=== PATIENT | female | born 1980 | race Two or more races ===

== ENCOUNTER 2023-10-15 22:38 | Emergency (ER) | payer OTHER ==
[~2023-10-15] VITALS: Ht 152.4 cm; Wt 95.3 kg
[2023-10-15] MEDS ORDERED: SYNTHROID125 MCG PO (22:51)
[2023-10-16 02:06] LABS: HEMATOCRIT 38.5 % (36.0-45.00); HEMOGLOBIN 12.9 g/dL (12.0-15.00); MEAN CELL VOLUME 82.1 fL (80.00-100.00); MEAN CORPUSCULAR HEMOGLOBIN 27.5 pg (27.00-32.0); MEAN CORPUSCULAR HGB CONC 33.5 g/dl (32.0-36.0); PLATELET COUNT 330 K/uL (150-450); RED BLOOD COUNT 4.69 M/uL (4.00-6.00); RED CELL DISTRIBUTION WIDTH 15.2 % (11.5-14.5)
[2023-10-16 02:31] LABS: CREATININE SERUM 0.75 mg/dL (0.55-1.02); GFR 85.58; POTASSIUM 3.88 mEq/L (3.5-5.1)
[2023-10-16 03:00] LABS: PH,URINE 6.5 (5.0-8.0); URINE APPEARANCE Clear; URINE BILIRRUBIN Negative (NEGATIVE); URINE BLOOD Large; URINE COLOR Yellow; URINE GLUCOSE Negative (NEGATIVE); URINE LEUKOCYTE Negative; URINE NITRATE Negative; URINE PROTEIN 30 (NEGATIVE)
[2023-10-16 03:08] LABS: URINE BACTERIA 226.7 uL (0.0-1933); URINE EPITHELIAL CELLS 11.7 uL (0.0-38.8); URINE WBC 8.3 uL (0.0-23.2)
[2023-10-16] MEDS ORDERED: ONDANSETRON ODT4 MG PO (06:26)
[2023-10-16] MEDS ORDERED: INTESTINEX680 M1 PO (06:26)
[2023-10-16] MEDS ORDERED: LEVSIN/SL0.125 MG SL (06:26)
[2023-10-16] MEDS ORDERED: PEPCID40 MG PO (06:26)
== END 2023-10-16 07:14 | disposition home or self-care (01) ==
LOC: ER 22:39
PROVIDERS: General Practice
DX: K52.89 Other specified noninfective gastroenteritis and colitis (principal)

== ENCOUNTER 2024-07-29 09:00 | Outpatient (CLI) | payer OTHER ==
[~2024-07-29 09:00] MED LIST: INTESTINEX680 M1 PO; LEVSIN/SL0.125 MG SL; ONDANSETRON ODT4 MG PO; PEPCID40 MG PO; SYNTHROID125 MCG PO
== END 2024-07-29 09:03 | disposition home or self-care (01) ==
LOC: SONOGRAMA 09:00
PROVIDERS: ATTEND Pathology Anatomic Pathology
DX: D44.0 Neoplasm of uncertain behavior of thyroid gland (principal); C73 Malignant neoplasm of thyroid gland